=== PATIENT | female | born 1990 | race American Indian/Alaskan Native ===

== ENCOUNTER 2020-08-18 23:34 | Emergency (ER) | payer SELFPAY ==
[2020-08-19] MEDS ORDERED: metFORMIN 500 MG Tab PO ONE (00:25)
--- NOTE | 2020-08-19 00:34 | EDM.PDOC ---
ED HPI GENERAL MEDICAL PROBLEM - General Chief Complaint: General Stated Complaint: DOMENICCK Time Seen by Provider: 08/19/20 00:23 - History of Present Illness INITIAL COMMENTS - FREE TEXT/NARRATIVE: History of present illness: [] She is on her way to long term. She is accompanied by law enforcement. This is Friday morning and she will be in for the weekend at least according them. She does not have any symptoms. She says she takes insulin and she takes a little bit of insulin and varies the amount according to how she feels. She does not always take it. She thinks her insulin might be . She did not bring it with her. She does not check her sugar she goes on how she feels. Blood sugar here is 214 Review of systems: As per history of present illness and below otherwise all systems reviewed and negative. Past medical history: As per history of present illness and as reviewed below otherwise noncontributory. Surgical history: As per history of present illness and as reviewed below otherwise noncontr ibutory. Social history: No reported history of drug or alcohol abuse. Family history: As per history of present illness and as reviewed below otherwise noncontributory. Physical exam: Constitutional - well developed, well-nourished and in no acute distress HEENT - normocephalic, no evidence of trauma - external nose and mouth normal - no mass in neck and no JVD - mucosae moist EYES - full EOM, PERRL, no icterus - no evidence of inflammation, injection, or drainage Respiratory - no respiratory distress, equal bilateral expansion, lungs clear to auscultation and no abnormal lung sounds Cardiovascular - Regular Rhythm with S1 and S2 appreciated and no murmur, gallop or rub. GI - abdomen soft without distension or organomegaly - normal bowel sounds - no guard or rebound Musculoskeletal no gross deformity of long bones or joints - no tenderness, swelling or edema Neurologic - Alert and oriented times four - CN II-XII grossly intact - motor sensory and coordination symmetrically normal Psychiatric - appropriate mood and affect with normal thought content Hematologic - No petechiae or purpura - mucosa appropriate color and sclera not pale - normal nail bed color and refill Integument - no rash or evidence of trauma - normal turgor Diagnostics: [] Therapeutics: [] Impression: [] Plan: [] Definitive disposition and diagnosis as appropriate pending reevaluation and review of above. 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 Psychiatric History: Reports: Addiction Endocrine/Metabolic History: Reports: Diabetes, Type II - Infectious Disease History Infectious Disease History: Reports: Chicken Pox - Past Surgical History HEENT Surgical History: Reports: Tonsillectomy Social & Family History - Family History Family Medical History: No Pertinent Family History - Caffeine Use Caffeine Use: Reports: Coffee, Energy Drinks, Soda, Tea - Recreational Drug Use Recreational Drug Type: Reports: Codiene, Marijuana/Hashish, Methamphetamine, Oxycodone ED ROS GENERAL - Review of Systems Review Of Systems: Comprehensive ROS is negative, except as noted in HPI. ED EXAM, GENERAL - Physical Exam Exam: See Below Free Text/Narrative:: My physical exam is in the HPI Course - Vital Signs Text/Narrative:: The safest thing to do with this adult onset diabetes mellitus he does not measure her own sugar and does not know how much insulin she supposed to take takes it according how she feels it probably put her on Metformin while she is in long term and let her family doctor of the clinic deal with it Last Recorded V/S: Last Vital Signs Temp 36.6 C 08/19/20 00:15 Pulse 88 08/19/20 00:15 Resp 18 08/19/20 00:15 BP 156/93 H 08/19/20 00:15 Pulse Ox 97 08/19/20 00:15 - Orders/Labs/Meds Labs: Laboratory Tests 08/19/20 Range/Units 00:22 POC Glucose 214 H (60-110) mg/dL Meds: Medications Discontinued Medications Generic Name Dose Route Start Last Admin Trade Name Gaudencio PRN Reason Stop Dose Admin Metformin HCl 500 mg 08/19/20 00:25 Metformin 500 Mg Tab PO 08/19/20 00:26 ONETIME ONE Departure - Departure Time of Disposition: 00:33 Disposition: Home, Self-Care 01 Condition: Good Clinical Impression: Hyperglycemia - Discharge Information Prescriptions: metFORMIN [Glucophage] 500 mg PO BIDMEALS #14 tab Instructions: Hyperglycemia, [id number] Referrals: PCP,None [Primary Care Provider] - Additional Instructions: Dr. Bella to help you learn how to control your blood sugar. They need to check your A1c and put on appropriate medicine. Metformin will drop your sugar dangerously and will help over the weekend. Please follow-up soon. [facility] [address] [place] [address] [facility] [address] [place] [id number] The following information is given to patients seen in the emergency department who are being discharged to home. This information is to outline your options for follow-up care. We provide all patients seen in our emergency department with a follow-up referral. The need for follow-up, as well as the timing and circumstances, are variable depending upon the specifics of your emergency department visit. If you don't have a primary care physician on staff, we will provide you with a referral. We always advise you to contact your personal physician following an emergency department visit to inform them of the circumstance of the visit and for follow-up with them and/or the need for any referrals to a consulting specialist. The emergency department will also refer you to a specialist when appropriate. This referral assures that you have the opportunity for follow-up care with a specialist. All of these measure are taken in an effort to provide you with optimal care, which includes your follow-up. Under all circumstances we always encourage you to contact your private physician who remains a resource for coordinating your care. When calling for follow-up care, please make the office aware that this follow-up is from your recent emergency room visit. If for any reason you are refused follow-up, please contact the [facility] Emergency Department at and asked to speak to the emergency department charge nurse. Sepsis Event Note (ED) - Evaluation Sepsis Screening Result: No Definite Risk - Focused Exam Vital Signs: Vital Signs Temp Pulse Resp BP Pulse Ox 08/19/20 00:15 36.6 C 88 18 156/93 H 97
== END 2020-08-19 00:51 | disposition home or self-care (01) ==
LOC: MW.ED 23:34
DX: E11.65 Type 2 diabetes mellitus with hyperglycemia (principal); Z79.4 Long term (current) use of insulin; Z88.8 Allergy status to other drugs, medicaments and biological substances
CPT/HCPCS: 82962; 99283; A9270